=== PATIENT | male | born 1980 | race Two or more races ===

== ENCOUNTER 2018-10-20 22:32 | Emergency (ER) | payer MEDICAID ==
[~2018-10-20] VITALS: Ht 193 cm; Wt 137.0 kg
[2018-10-21 00:45] VITALS: BP 135/80
== END 2018-10-21 00:52 | disposition home or self-care (01) ==
LOC: ER 23:48
DX: F19.10 Other psychoactive substance abuse, uncomplicated (principal); F15.10 Other stimulant abuse, uncomplicated; F12.10 Cannabis abuse, uncomplicated; F41.9 Anxiety disorder, unspecified
CPT/HCPCS: 99283